=== PATIENT | male | born 1950 | race Caucasian/White ===

== ENCOUNTER 2023-06-19 08:42 | Outpatient (REF) | payer MEDICARE, OTHER, SELFPAY | END 2023-06-19 08:43 | disposition home or self-care (01) | LOC: HO.SH 08:42 | PROVIDERS: Visit Provider Internal Medicine | DX: Z01.118 Encounter for examination of ears and hearing with other abnormal findings (principal); H90.3 Sensorineural hearing loss, bilateral | CPT/HCPCS: 92557 ==

== ENCOUNTER 2023-09-18 14:18 | Outpatient (REF) | payer SELFPAY ==
--- NOTE | 2023-09-18 16:48 | MHC.AU.HA1 ---
Hearing Aid Evaluation Date of Visit: 09/18/23 Historical Information: Description of Hearing: Borderline normal gradually sloping to moderate sensorineural hearing loss, bilateral. Summary: Here for hearing aid consultation. Recent evaluation performed 06/19/2023. Reviewed styles, technology levels, and costs. Scottie reports dining out and finding himself in challenging listening situations with moderate frequency. He notes frequent trips to races for which he will need to take hearing aids out and continue to use hearing protection. He would like rechargeable hearing aids. He reports having an iPhone but not always carrying it with him and having no interest in using apps. He intends to submit for reimbursement from his insurance. Hearing Aid Prescription: Based on the individual?s shared listening needs, communication environments, dexterity, desire for connectivity, and personal preferences, the following prescription for amplification has been made: Right ear: Make, Model, Color: OtBevy Real 2 miniRITE R, chroma beige Battery Size: Rechargeable Men'S Custom Hair Piece Consultant/Slim Tube: 2/85 Type of Earmold/Dome/CShell/SlimTip: 8mm open bryant Left ear: Left ear prescription to be same as Right Hearing Aid above: Accessories/Assistive Technology Recommended: Diesel Engine Inspector Plan of Care: Patient wishes to purchase hearing aids as prescribed Action Taken/Action Needed: Medical Clearance to be requested from PCP/ENT Comments: Otoscopy reveals partially occluding cerumen Au today, advised to have cerumen removed prior to fitting appointment. Scottie will schedule this at his PCP. Primary Diagnosis: H90.3 Bilateral Sensorineural Hearing Loss Signature: Provider: Ashli Hernandes, [facility]
== END 2023-09-18 14:19 | disposition home or self-care (01) ==
LOC: HO.HAP 14:18
PROVIDERS: Visit Provider Internal Medicine
DX: Z46.1 Encounter for fitting and adjustment of hearing aid (principal); H90.3 Sensorineural hearing loss, bilateral
CPT/HCPCS: 92590

== ENCOUNTER 2023-10-02 14:18 | Outpatient (REF) | payer SELFPAY ==
--- NOTE | 2023-10-02 15:31 | MHC.AU.HA2 ---
Hearing Instrument Fitting- Adult- Binaural Date of Visit: 10/02/23 Hearing Instruments Dispensed: Right Ear: Make, Model, Color, Serial Number: Oticon Real 3 miniRITE R, chroma beige S# [id number] Medical Records Secretary Repair Warranty: 10/26/2026 Medical Records Secretary Loss and Damage Warranty: 10/26/2026 [facility] Service Plan: no Battery Size: Rechargeable Associate Professor Of Radiology/Slim Tube: 2/85 Earmold/Dome/CShell/SlimTip: 8mm open bryant Type of Wax Guard: Oticon minifit pro wax Left Ear: Make, Model, Color, Serial Number: Oticon Real 3 miniRITE R, chroma beige [id number] Medical Records Secretary Repair Warranty: 10/26/2026 Medical Records Secretary Loss and Damage Warranty: 10/26/2026 [facility] Service Plan: no Battery Size: Rechargeable Associate Professor Of Radiology/Slim Tube: 2/85 Earmold/Dome/CShell/SlimTip: 8mm open bryant Type of Wax Guard: Oticon minifit pro wax Accessories/Assistive Technology: desktop catering assistant Minirite R [id number] Warranty 10/26/2026 Smartcharger Minirite R [id number] Warranty 10/26/2026 Summary of Fitting: Fit with and oriented to binaural Oticon Real 3 miniRITE R HAs. Pt reports recent wax removal at PCP, otoscopy WNL Au. Verified to DSL 5 Adult targets. Reduced to adaptation 2 with gradual automatic increase. Good subjective comfort and benefit reported. VC disabled at this time. Practiced insertion and removal and demonstrated catering assistant use. Counseled to wear hearing aids daily for best benefit. Advised to use HP instead of hearing aids at the racetrack. Provided itemized receipt to patient who will seek reimbursement from his insurance. Recommendations: Recommendations: Hearing instrument care and maintenance were discussed and practiced. Please call our clinic with any questions or concerns. Sent up front to schedule follow up in two weeks. Diagnosis Code(s): Primary Diagnosis: H90.3 Bilateral Sensorineural Hearing Loss Signature: Provider: Ashli Hernandes, [facility]
== END 2023-10-02 14:19 | disposition home or self-care (01) ==
LOC: HO.HAP 14:18
PROVIDERS: Visit Provider Internal Medicine
DX: Z46.1 Encounter for fitting and adjustment of hearing aid (principal); H90.3 Sensorineural hearing loss, bilateral
CPT/HCPCS: V5261; V5299

== ENCOUNTER 2023-10-24 09:48 | Outpatient (REF) | payer SELFPAY ==
--- NOTE | 2023-10-24 10:32 | MHC.AU.HA3 ---
Hearing Instrument Follow-Up- Binaural Date of Visit: 10/24/23 Right Ear: Make, Model, Color, Serial Number: Oticon Real 3 miniRITE R, chroma beige S# [id number] Thread Weaver Repair Warranty: 10/26/2026 Thread Weaver Loss and Damage Warranty: 10/26/2026 [facility] Service Plan: no Battery Size: Rechargeable Mortar Man/Slim Tube: 2/85 Earmold/Dome/CShell/SlimTip:8mm open bryant Type of Wax Guard: Oticon minifit pro wax Dispensed By: [facility] [place] [facility] Date of Fittin10/02/2023 Left Ear: Make, Model, Color, Serial Number: Oticon Real 3 miniRITE R, chroma beige [id number] Thread Weaver Repair Warranty: 10/26/2026 Thread Weaver Loss and Damage Warranty: 10/26/2026 [facility] Service Plan: no Battery Size: Rechargeable Mortar Man/Slim Tube: 2/85 Earmold/Dome/CShell/SlimTip: 8mm open bryant Type of Wax Guard: Oticon minifit pro wax Dispensed By: [facility] [place] [facility] Date of Fittin10/02/2023 Follow-Up Summary: Doing well with hearing aids so far. Notices that his hearing feels muffled now when he takes them out. Had some questions about the smart education technician. Had trouble when he tried changing the wax guard at home. Practiced changing domes and wax guards today. Scottie would like to check in before he goes on a trip to [place] this spring incase he continues to have any problems with cleaning them. Recommendations: Recommendations: An additional follow-up was scheduled to monitor progress. Diagnosis Code(s): Primary Diagnosis: H90.3 Bilateral Sensorineural Hearing Loss Signature: Provider: Ashli Hernandes, [facility]
== END 2023-10-24 09:49 | disposition home or self-care (01) ==
LOC: HO.HAP 09:48
PROVIDERS: Visit Provider Internal Medicine Geriatric Medicine
DX: Z13.89 Encounter for screening for other disorder (principal)

== ENCOUNTER 2023-12-26 09:49 | Outpatient (REF) | payer SELFPAY ==
--- NOTE | 2023-12-26 11:19 | MHC.AU.HA3 ---
Hearing Instrument Follow-Up- Binaural Date of Visit: 12/26/23 Right Ear: Make, Model, Color, Serial Number: Oticon Real 3 miniRITE R, chroma beige S# [id number] Certified [employer] Engineer Repair Warranty: 10/26/2026 Certified [employer] Engineer Loss and Damage Warranty: 10/26/2026 [facility] Service Plan: no Battery Size: Rechargeable Door Frame Builder/Slim Tube: 2/85 Earmold/Dome/CShell/SlimTip:8mm open bryant Type of Wax Guard: Oticon minifit pro wax Dispensed By: [facility] [place] Date of Fittin10/02/2023 Left Ear: Make, Model, Color, Serial Number: Oticon Real 3 miniRITE R, chroma beige [id number] Certified [employer] Engineer Repair Warranty: 10/26/2026 Certified [employer] Engineer Loss and Damage Warranty: 10/26/2026 [facility] Service Plan: no Battery Size: Rechargeable Door Frame Builder/Slim Tube: 2/85 Earmold/Dome/CShell/SlimTip: 8mm open bryant Type of Wax Guard: Oticon minifit pro wax Dispensed By: [facility] [place] Date of Fittin10/02/2023 Follow-Up Summary: Scottie is here with his today. Has some questions about maintenance. Would like aids cleaned and checked prior to heading off on a trip. Reviewed changing domes and wax guards. Cleaned and checked aids. Microphones had debris. Vacuumed aids; ran through dehumidifier; replaced domes, wax guards, and tails. Follow up as needed. Suggested eval in May, advised doctor order needed. Recommendations: Recommendations: Please contact our clinic with any questions or concerns. Diagnosis Code(s): Primary Diagnosis: H90.3 Bilateral Sensorineural Hearing Loss Signature: Provider: Ashli Hernandes, CCC-A
== END 2023-12-26 09:50 | disposition home or self-care (01) ==
LOC: HO.HAP 09:49
PROVIDERS: PCP Internal Medicine; Visit Provider Internal Medicine
DX: Z46.1 Encounter for fitting and adjustment of hearing aid (principal); H90.3 Sensorineural hearing loss, bilateral
CPT/HCPCS: 92593

== ENCOUNTER 2024-03-31 11:05 | Outpatient (REF) | payer SELFPAY | END 2024-03-31 11:06 | disposition home or self-care (01) | LOC: HO.HAP 11:05 | PROVIDERS: Visit Provider Internal Medicine | DX: Z46.1 Encounter for fitting and adjustment of hearing aid (principal) | CPT/HCPCS: V5267 ==

== ENCOUNTER 2025-05-24 13:15 | Outpatient (REF) | payer SELFPAY ==
--- OUTSIDE RECORDS SUMMARY | 2025-05-24 14:39 | XMS_ITS ---
Author Name [facility] Organization Unknown Care Team Organization Name Specialty Phone Email Start Date End Da te [facility] 04/14/2025 [facility] JODI FUNES Primary Care 02/01/2023 4 [facility] Lori Brown Primary Care 07/03/2022 4
== END 2025-05-24 13:16 | disposition home or self-care (01) ==
LOC: HO.HAP 13:15
PROVIDERS: Visit Provider Internal Medicine
DX: Z46.1 Encounter for fitting and adjustment of hearing aid (principal); H90.3 Sensorineural hearing loss, bilateral
CPT/HCPCS: 92592